=== PATIENT | male | born 1960 | race Hispanic/Latino ===

== ENCOUNTER 2019-09-10 07:56 | Outpatient (CLI) | payer OTHER ==
--- NOTE | 2019-09-10 09:41 | RAD ---
RIGHT KNEE 4 VIEWS: HISTORY: Right knee pain. FINDINGS: Joint spaces are preserved. Minimal tricompartmental osteophytosis. No acute fracture, dislocation, or fluid distention of the suprapatellar bursa. IMPRESSION: Minimal osteoarthritic changes. No acute osseous abnormalities are demonstrated. POS: [facility]
== END 2019-09-10 07:57 | disposition home or self-care (01) ==
LOC: BICRAD 07:56
PROVIDERS: ATTEND Nurse Practitioner Family
DX: M25.561 Pain in right knee (principal); M17.11 Unilateral primary osteoarthritis, right knee